=== PATIENT | male | born 1970 ===

== ENCOUNTER 2021-09-06 05:25 | Day surgery (SDC) | payer OTHER ==
[~2021-09-06 05:25] MED LIST: LOSARTAN POTAS100 MG PO; SYNTHROID50 MCG PO
[2021-09-06] MEDS ORDERED: ULTRAM50 MG PO (10:00)
== END 2021-09-06 13:45 | disposition home or self-care (01) ==
LOC: CIR.AMB 05:25
PROVIDERS: ATTEND Surgery
DX: N48.6 Induration penis plastica (principal); I10 Essential (primary) hypertension; Z20.822 Contact with and (suspected) exposure to COVID-19; E03.9 Hypothyroidism, unspecified